=== PATIENT | female | born 1995 | race Caucasian/White ===

== ENCOUNTER 2020-03-15 11:33 | Outpatient (CLI) | payer OTHER, SELFPAY ==
--- NOTE | 2020-03-19 12:29 | WPDHOLTEREM ---
Holter/Event Monitor Holter/Event Monitor Date of procedure: 03/20/20 Procedure Type: 24 hour holter monitor Indications: Palpitations Conclusion: 1. 24 hour holter monitor on 03/15/20. 2. Underlying rhythm is sinus rhythm. HR range 54-197 bpm; average HR 95 bpm. The fastest HR at 197 bpm was at 11:05 am. 3. There are 221 premature supraventricular complexes, 8 supraventricular couplets and 3 supraventricular triplets. No supraventricular tachycardia. 4. There are 25 premature ventricular complexes. No ventricular tachycardia. 5. No sinoatrial or atrioventricular blocks. No significant pauses greater than 2 seconds. 6. Patient reports symptoms of heart pounding, shortness of breath, shakiness, stabbing feeling which demonstrate sinus rhythm, HR range 60-185 bpm.
== END 2020-03-15 11:34 | disposition home or self-care (01) ==
PROVIDERS: PCP Family Medicine; Visit Provider Family Medicine
DX: R00.2 Palpitations (principal)
CPT/HCPCS: 93225; 93226